=== PATIENT | male | born 1975 | race Caucasian/White ===

== ENCOUNTER → 2024-01-19 | Outpatient (CLI) | payer BC ==
[2024-01-20 04:46] LABS: ALT 22 U/L (10-49); AST 19 U/L (14-35); Albumin 4.5 g/dL (3.8-4.9); Alkaline Phosphatase 75 U/L (41-126); Calcium 9.5 mg/dL (8.7-10.3); Carbon Dioxide 24.3 mmol/L (21.6-31.8); Chloride 105 mmol/L (96-109); Glucose 86 mg/dL (70-110); Potassium 4.2 mmol/L (3.5-5.5); Sodium 141 mmol/L (135-145); Total Bilirubin 0.3 mg/dL (0.3-1.2); Total Protein 7.5 g/dL (6.2-8.2)
== END | disposition home or self-care (01) ==
LOC: LABWHC1 15:47
PROVIDERS: ATTEND Internal Medicine Critical Care Medicine
DX: D86.9 Sarcoidosis, unspecified (principal)
CPT/HCPCS: 36415; 80053; 82164; 85652; 86141

== ENCOUNTER 2024-02-09 10:56 | Day surgery (SDC) | payer BC ==
[2024-02-08 12:35] VITALS: BMI 39.2
[~2024-02-09 10:56] MED LIST: LACTATED RINGERS 1,000 ML IV SCH; LIDOCAINE 1% (10MG/ML) FOR IV START INTRADERMA PRN; SCOPOLAMINE 1 MG/72 HR PATCH TRANSDERM ONE; fentaNYL (PF) 50 MCG/ML 2 ML AMP IV PRN
[2024-02-09] MEDS: IV FLUID CONTINUATION 1,000 ML IV ONE (11:49)
[2024-02-09 11:55] VITALS: TEMP 97.4
[2024-02-09] MEDS: LACTATED RINGERS 1,000 ML IV SCH (11:58)
[2024-02-09] MEDS: DEXAMETHASONE SOD PHOSPHATE 4 MG/ML 1 ML VIAL IV ONE (11:59)
[2024-02-09] MEDS: ONDANSETRON 4 MG/2 ML VIAL IVP ONE (11:59)
--- NOTE | 2024-02-09 12:33 | CT ---
EXAMINATION TYPE: CT chest wo con DATE OF EXAM: 02/09/2024 COMPARISON: PET/CT 01/09/2024 HISTORY: Ion Bronch CT DLP: 1150.8 mGycm, Automated exposure control for dose reduction was used. CONTRAST: Performed injected with 0 mL of Isovue 300. TECHNIQUE: Axial images were obtained at 1 mm thick sections. Reconstructed images are reviewed on [employer] computer in the coronal plane. FINDINGS: Portion of the thyroid visualized is normal. Suspicious nodularity extends from the right hilum to the right posterior lateral lung. Findings pres ent prior examination. No new suspicious areas of density. Scattered small lymph nodes are present. T here is enlarged pretracheal the 1.8 cm transverse dimension. Series 3 image 94. An additional 1.0 cm lymph node slightly more inferior right paratracheal region. No enlarged mediastinal or hilar adenopathy is evident. The ascending aorta diameter at the level o f the main pulmonary artery is 3.3 cm. The main pulmonary artery diameter at the bifurcation is 2.[address] sections are obtained through the upper abdomen. A small hiatal hernia is present. IMPRESSION: 1. CT for bronchoscopy guidance.
[2024-02-09] MEDS ORDERED: NEOSTIGMINE 1 MG/ML 10 ML VIAL ONE (12:38)
[2024-02-09] MEDS ORDERED: SUCCINYLCHOLINE CHLORIDE 200 MG/10 ML VIAL IV ONE (12:38)
[2024-02-09] MEDS ORDERED: ROCURONIUM 10 MG/ML (5 ML VIAL) IV ONE (12:38)
[2024-02-09] MEDS ORDERED: LIDOCAINE 4% LTA KIT (4 ML) TOPICAL ONE (12:38)
[2024-02-09] MEDS ORDERED: GLYCOPYRROLATE 0.2 MG/ML 2 ML VIAL ONE (12:38)
[2024-02-09] MEDS ORDERED: DEXAMETHASONE SOD PHOSPHATE 10 MG/ML 1 ML VIAL ONE (12:38)
[2024-02-09] MEDS ORDERED: PROPOFOL 10 MG/ML 20 ML VIAL IV ONE (12:38)
--- NOTE | 2024-02-09 14:51 | P.PCN ---
Date of Procedure: 02/09/24 Operative Findings: Preoperative Diagnosis: Right lower lobe mass like consolidation, rule out malignancy, rule out sarcoidosis, rule out chronic infections Mediastinal adenopathy Postoperative Diagnosis: Significant narrowing of the superior segment of the right lower lobe bronchus Procedure(s) Performed: Flexible bronchoscopy Robotic-assisted bronchoscopy and addition to radial ultrasound evaluation of the right lower lobe mass like consolidation Robotic-assisted transbronchial needle aspirate, transbronchial biopsies, transbronchial brushings, transbronchial brushings of the right lower lobe mass in addition to a bronchioloalveolar lavage Endobronchial ultrasound EBUS guided TBNA of the station 4R and station 10 R lymph nodes. Anesthesia: GETA Surgeon: Isis Steele Estimated Blood Loss (ml): 0 Pathology: other Condition: stable Disposition: same day Operative Findings: A physical exam was performed. Informed consent was obtained from the patient after explaining all the risks (pneumothorax, life threatening bleeding, infection and adverse effects due to medications), benefits and alternatives to the procedure which the patient appeared to understand and so stated. The patient was connected to the monitoring devices. General anesthesia was induced and the patient was intubated by anesthesia. A final timeout was performed and the procedure confirmed by the attending staff bronchoscopist. The bronchoscope was inserted and the airway examined. The flexible bronchoscope was removed and the robotic bronchoscope was inserted. Registration was completed. I next guided the robotic bronchoscope using the navigation system into the superior segment of the ight lower lobe posterior segment. note that the orifice of the superior segment was patent. However, there was considerable narrowing as the bronchoscope was advanced further and the various segments in the superior segment were essentially atelectatic. There was some irregular mucosa within the airways and the mucosa was friable and bloody. Once in proper position, the bronchoscope was frozen. The radial EBUS probe was placed through the bronchoscope and confirmed abnormal u/s images vs normal lung. A needle was placed through the working channel and under fluoroscopic guidance, we sampled the area thought to have the mass twice. We then used a cloud biopsy pattern with ultrasound confirmation for 2 additional passes with the needle. U/S evaluation was then used to reconfirm location. Forceps were next introduced through working channel and extended the appropriate distance and 3 transbronchial biopsies were performed using fluoroscopic guidance. The u/s probe was then reinserted to confirm location. When confirmed this process was repeated for a total of 8-10 transbronchial biopsies. After reassessment with EBUS, a brush was placed through the extendable working channel for 1 pass with fluoroscopic guidance. U/S evaluation was then used to confirm location. 40ml of saline was then instilled into the area of the lesion. 10cc was aspiratred. The aspirate was bloody. The robotic bronchoscope was removed and the airway inspected no evidence of any ongoing endobronchial bleeding. the robotic bronchoscope was removed and endobronchial ultrasound was inserted. Review of the radius mediastinal stations revealed several abnormal mediastinal lymph nodes including his station 4R lymph node measuring 11 x 7 mm in size and a station 11 R lymph node measuring 13 x 12 mm in size. Using a 22-gauge needle, transbronchial needle aspirate of the lymph nodes were done and a total of 4 passes was obtained from each station. No complications. The endobronchial ultrasound was removed. Flex. bronchoscope was inserted and regular suctioning was done. At the completion of the procedure, no residual secretions or bloody material within the airway. The bronchoscope was removed. The patient was extubated. FINDINGS: 1.The airways appeared normal 2 Successful navigation, ultrasonographic identification, and biopsies of right lower lobe mass-like consolidation 3.The the radial ultrasound view was eccentric/concentric RECOMMENDATIONS: Await pathology and cytology results The referring physician will be alerted to the results when available. The patient was advised to follow up with the referring physician with the biopsy results Patient will be called with results.
[2024-02-09] MEDS: ATROPINE SULFATE 0.1 MG/ML 10ML SYRINGE IV STA (15:18)
--- NOTE | 2024-02-09 15:47 | XR ---
EXAMINATION TYPE: XR chest 1V portable DATE OF EXAM: 02/09/2024 2:55 PM CLINICAL INDICATION:Male, 48 years old with history of s/p bronch ro pneumo; [facility] COMPARISON: Chest radiographs from 02/09/2024 TECHNIQUE: XR chest 1V portable Frontal view of the chest. FINDINGS: Lungs/Pleura: There is no evidence of pleural effusion, focal consolidation, or pneumothorax. Pulmonary vascularity: Mild pulmonary vascular congestion. Heart/mediastinum: Cardiomediastinal silhouette is unremarkable. Musculoskeletal: No acute osseous pathology. IMPRESSION: Pulmonary edema without evidence for pneumothorax.
--- NOTE | 2024-02-09 16:00 | FL ---
EXAMINATION TYPE: FL bronchoscopy Intraoperative/procedural fluoroscopic services were provided. Tota l fluoroscopy time is 2 minutes 21 seconds with a total of 11 submitted images to PACS. Please see th e operative/procedural note for further details. DAP: 12.742 Gycm2
[2024-02-09 17:40] VITALS: RESP 18
[2024-02-09 17:43] VITALS: BP 132/81; PULSE 62
== END 2024-02-09 17:24 | disposition home or self-care (01) ==
LOC: ORWHC2ENDO 10:56
PROVIDERS: ATTEND Internal Medicine Critical Care Medicine
DX: J81.1 Chronic pulmonary edema (principal)
CPT/HCPCS: 88108; 88305; 87070; 87205; 87116; 87102; 87206; 71045; 71250; 31629; 31625; 31623; 31624; 31652; J0330; J1100 ×2; J2710; J2405; J0461; J2704; S2900

== ENCOUNTER → 2024-04-06 | Outpatient (CLI) | payer BC ==
--- NOTE | 2024-04-27 14:06 | CT ---
Patient: Farhat Neri D Ordering Physician: Unknown, Unknown ID: [id number] Phone, Pager: Phone: N/A Pager: N/A : [phone] Age/Gender: 48Y, M Primary Location: N/A Procedure: CT Chest w Contrast S jddy Date: 04/06/2024 3:13:00 PM EXAMINATION TYPE: CT chest w con CT DLP: 658 mGycm, Automated exposure control for dose reduction was used. DATE OF EXAM: 04/14/2024 11:27 AM COMPARISON: 02/09/2024 CLINICAL INDICATION: Pain and pressure right-sided rib cage TECHNIQUE: Multiple axial images were obtained through the chest. Sagittal and coronal reformats were created for review. Contrast used: 100 cc Isovue-300 Oral contrast used: (None if empty) FINDINGS: LUNGS/ PLEURA: Airspace opacities in the right lower lungs some of which are nodular. No pneumothorax or pleural effusion identified. AIRWAY: Patent and unremarkable. HEART: Size within normal limits. MEDIASTINUM: No gross evidence of adenopathy. Right pulmonary hilum lymph node which is enlarged michaela uring up to 18 mm. Right low paratracheal lymph node is enlarged measuring up to 13 mm. VASCULATURE: No aortic aneurysm. MUSCULOSKELETAL: No acute osseous abnormalities SOFT TISSUES/LYMPH NODES: Unremarkable. LOWER NECK: No significant findings. UPPER ABDOMEN: Gallbladder surgically absent. Low-attenuation liver parenchyma. IMPRESSION: 1. Airspace opacities right lower lung superior segment somewhat nodular in areas. Correlate for inf ection. Enlarged lymph nodes in the mediastinum likely reactive to this suspected infection. Short-te rm follow-up to ensure resolution recommended of these opacities. 2. Hepatic steatosis. Follow up recommendations for incidental pulmonary nodules, if there are any, are per [employer] or [employer]. [email or web address]/[email or web address]?lang=us
== END | disposition home or self-care (01) ==
LOC: RADCTMAIN 14:53
PROVIDERS: ATTEND Internal Medicine Critical Care Medicine
DX: R91.8 Other nonspecific abnormal finding of lung field (principal); K76.0 Fatty (change of) liver, not elsewhere classified; R59.0 Localized enlarged lymph nodes
CPT/HCPCS: 71260; Q9967